=== PATIENT | male | born 1980 | race Caucasian/White ===

== ENCOUNTER 2017-05-15 15:17 | Emergency (ER) | payer OTHER ==
[2017-05-15 15:25] VITALS: BP 154/92; TEMP 98.1; BMI 38.7
--- NOTE | 2017-05-15 16:24 | ED.PDOC ---
General ED Provider: Dr. MAVIS DUFFY Chief Complaint: Tooth Problem Stated Complaint: Severe left upper jaw pain. Has dental abscess as diagnosed by Dr Diaz (Rx Amoxicillin) and Dr Avery-local dentist who prescribed Penicillin. Advised he needed to see oral surgeon. Currently in Severe pain Time Seen by Physician: 15:50 Mode of Arrival: Walk-In Information Source: Patient Primary Care Provider: ERIC DIAZ Nursing and Triage Documentation Reviewed and Agree: Yes Reviewed sepsis parameters & appropriate labs ordered?: Yes System Inflammatory Response Syndrome: Not Applicable Sepsis Protocol: For patient's 13 years and over: Temp is 96.8 and below OR 101 and greater Pulse >90 BPM Resp >20/minute Acutely Altered Mental Status Are patient's symptoms suggestive of a new infection, such as: -Pneumonia -Skin, Soft Tissue -Endocarditis -UTI -Bone, Joint Infection -Implantable Device -Acute Abdominal Infection -Wound Infection -Meningitis -Blood Stream Catheter Infection -Unknown System Inflammatory Response Syndrome: Not Applicable EENT Complaint Exam - Dental/Oral Complaint/Exam Mechanism of Injury: No known trauma Symptoms Are: Still present Timing: Constant Initial Severity: Moderate Current Severity: Severe Location: lt upper gum line Character: Reports: Dull, Aching, Throbbing Aggravating: Reports: Heat, Cold, Chewing Alleviating: Reports: OTC Meds Associated Signs and Symptoms: Reports: Swelling, Foul taste in mouth Related History: Reports: Similar episode Cardiac Risk Factors: Reports: None Dental/Oral Surgical History: Reports: None Tooth Findings: Present: Percussion tenderness Cervical Lymphadenopathy Present: No Facial Swelling Present: Yes Bleeding Present: No Oropharynx Findings: Absent: Clots, Active bleeding Septal Hematoma: No Foreign Body Present: No Dysphagia Present: No Drooling Present: Yes Asymmetrical Tonsillar Swelling Present: No Uvula Midline: Yes Paris-tonsillar Fluctuence: No Trismus Present: No Palatal Petechiae Present: No Scarlatinaform Rash Present: No Lesions: Absent: Gums, Tongue, Buccal Mucosa Exanthem: Absent: Gums, Tongue, Buccal Mucosa, Pharynx Vesicles: Absent: Lip, Gums, Tongue, Buccal Mucosa Differential Diagnoses: Dental Abcess, Dental Caries Review of Systems - Review Of Systems Constitutional: Reports: Malaise Eyes: Reports: No symptoms Ears, Nose, Mouth, Throat: Reports: Mouth swelling Respiratory: Reports: No symptoms Cardiac: Reports: No symptoms GI: Reports: No symptoms : Reports: No symptoms Musculoskeletal: Reports: No symptoms Skin: Reports: No symptoms Neurological: Reports: No symptoms Endocrine: Reports: No symptoms Hematologic/Lymphatic: Reports: No symptoms All Other Systems: Reviewed and Negative Past Medical History - Past Medical History Endocrine: Reports: None Cardiovascular: Reports: None, Hypertension Respiratory: Reports: None Hematological: Reports: None Gastrointestinal: Reports: None Genitourinary: Reports: None Neuro/Psych: Reports: None Musculoskeletal: Reports: None Cancer: Reports: None - Surgical History General Surgical History: Reports: None - Family History Family History: Reports: None - Social History Smoking Status: Current every day smoker, Heavy tobacco smoker Hx Substance Use: No Alcohol Screening: None - Immunizations Tetanus Shot up to Date: Yes Physical Exam - Physical Exam Appearance: Ill-appearing Ill-appearing: Mild Pain Distress: Severe Eyes: EVA, EOMI, Conjunctiva clear ENT: Ears normal, Erythema (dental decay with surrounding erythrema of buccal mucosa) Respiratory: Airway patent, Breath sounds clear Cardiovascular: RRR, Pulses normal GI/: Soft, Nontender, No masses Musculoskeletal: Normal strength, ROM intact, No edema Skin: Warm, Dry, Normal color Neurological: Sensation intact, Motor intact, Oriented Critical Care Note - Critical Care Note Total Time (mins): 0 Course - Course Hematology/Chemistry: 05/15/17 16:43 05/15/17 16:43 Vital Signs: Temp Pulse Resp BP Pulse Ox 05/15/17 15:18 98.1 F 84 16 154/92 H 92 L Departure - Departure Time of Disposition: 19:00 Disposition: HOME SELF-CARE Discharge Problem: Dental abscess, Hypertension Instructions: Dental Abscess (ED) Condition: Fair Pt referred to PMD for follow-up: Yes (1week) IPMP verified?: Yes Prescriptions: Clindamycin HCl [Cleocin] 300 mg PO Q6HR #30 cap Hydrocodone/Acetaminophen [Sedona 5-325 Tablet] 1 each PO Q4-6H PRN #15 tablet PRN Reason: Moderate Pain Hydrocodone/Acetaminophen [Sedona 5-325 Tablet] 1 each PO Q4-6H PRN #15 tablet PRN Reason: Mouth Sore Pain Hydroxyzine Pamoate [Vistaril] 25 mg PO TID PRN #30 tab PRN Reason: Mouth Sore Pain Allergies/Adverse Reactions: Allergies No Known Allergies Allergy (Verified 05/15/17 15:28) Home Medications: Ambulatory Orders Amoxicillin 500 mg PO TID 05/15/17 Atorvastatin Calcium [Lipitor] 20 mg PO BEDTIME 05/15/17 Clindamycin HCl [Cleocin] 300 mg PO Q6HR #30 cap 05/15/17 Hydrocodone/Acetaminophen [Sedona 5-325 Tablet] 1 each PO Q4-6H PRN #15 tablet Hydrocodone/Acetaminophen [Sedona 5-325 Tablet] 1 each PO Q4-6H PRN #15 tablet Hydroxyzine Pamoate [Vistaril] 25 mg PO TID PRN #30 tab 05/15/17 Lisinopril 20 mg PO DAILY 05/15/17 Disposition Discussed With: Patient
[2017-05-15] MEDS ORDERED: DILAUDID 1 MG/ML SYRINGE IM STA (16:29)
[2017-05-15] MEDS ORDERED: VISTARIL INJ IM STA (16:30)
[2017-05-15] MEDS ORDERED: VISTARIL ONE (16:34)
[2017-05-15] MEDS ORDERED: VISTARIL PO STA (16:54)
== END 2017-05-15 19:10 | disposition home or self-care (01) ==
LOC: ED 15:17
DX: K04.7 Periapical abscess without sinus (principal); K02.7 Dental root caries; I10 Essential (primary) hypertension; F17.210 Nicotine dependence, cigarettes, uncomplicated
CPT/HCPCS: 36415; 80053; 85025; 96372; 99282

== ENCOUNTER 2017-12-01 10:19 | Outpatient (CLI) ==
--- NOTE | 2017-12-01 10:58 | DI ---
EXAM: Foreign body evaluation for MRI clearance (eye) three views History: MRI clearance. Findings / impression: No fractures identified. No distinct air-fluid levels seen within the sinuse s. No radiopaque foreign bodies are seen projecting over the orbits. There is metallic dental hardw are.
--- NOTE | 2017-12-01 11:19 | DI ---
EXAM: Six views of the lumbar spine. History: Lower back pain and radiculopathy. Comparison: Lumbar spine radiograph 07/17/2008 Findings: No acute fracture or subluxation of the lumbar spine. Disc space heights are relatively p reserved. No instability identified with flexion or extension Impression: No acute osseous abnormality and no significant degenerative changes of the lumbar spine .
--- NOTE | 2017-12-01 16:26 | MRI ---
EXAM: MRI lumbar spine without IV contrast. DATE: 01 December 2017. HISTORY: Low back pain with radiculopathy. TECHNIQUE: Sagittal and axial T1W and T2W sequences of the lumbar spine along with sagittal IR and c oronal T2W sequences were obtained using 1.2 Maria Luisa magnet. No IV contrast. COMPARISON: LS spine series 01 December 2017. MRI L-spine 17 July 2008. FINDINGS: There are five [id number] lumbar vertebra. No lumbar scoliosis is evident. No acute lumbar fracture, subluxation, osseous malignancy, or pars interarticularis defect is demonstrated. The lumbar vertebra are normal in height. Bone marrow signal is normal. Disc desiccation and mild d isc space narrowing detected at L3-4 and L4-5. No acute sacral fracture or stress reaction is reveal ed. SI joints are unremarkable. Conus medullaris terminates at L1. Visible spinal cord is normal. No retroperitoneal lymphadenopathy, paraspinal mass, or aortic aneurysm is demonstrated. Paraspinal musculature is symmetric bilaterally. Visible portions of the liver, spleen, adrenal glands and kidn eys are normal. Segmental analysis: T11-12: Normal. T12-L1: Normal. L1-2: Normal. L2-3: Normal. L3-4: Small posterior to right far lateral disc bulge, superimposed right posterolateral disc protru leann (2.5 mm AP by 9 mm transverse) near the lateral margin of the foramen, minor facet arthropathy, and dorsal epidural fat cause moderate thecal sac narrowing and mild right foraminal stenosis. Right L3 nerve root contacts disc bulge/protrusion near the lateral margin of the foramen. L4-5: Minor posterior disc bulge, mild facet arthropathy, and mild ligamentum flavum hypertrophy cau se mild central canal stenosis and minor narrowing at the opening to each foramen. L5-S1: Normal. IMPRESSIONS: 1. Lumbar spine minor DDD and mild facet arthropathy. 2. Moderate L3-4 and mild L4-5 central canal stenoses. 3. L3-4 and L4-5 foraminal stenoses. Right L3 nerve root contacts the disc bulge/protrusion near th e foramen, and may be a source for pain/radiculopathy.
== END 2017-12-01 10:20 | disposition home or self-care (01) ==
LOC: RAD 10:19
PROVIDERS: ATTEND Nurse Practitioner
DX: M54.16 Radiculopathy, lumbar region (principal)

== ENCOUNTER 2018-07-04 14:25 | Outpatient (CLI) ==
--- NOTE | 2018-07-04 15:59 | US ---
Exam: Right upper extremity venous ultrasound HISTORY: Arm pain, tenderness and swelling Procedures: Transverse and longitudinal real time march scale echograms and color Doppler images of t he upper extremity were obtained. FINDINGS: The jugular, subclavian, axillary and brachial veins demonstrate normal flow and compressi bility. The cephalic, basilic, radial and ulnar veins appear patent. IMPRESSION: Right upper extremity venous Doppler ultrasound demonstrates no evidence of deep venous thrombosis.
== END 2018-07-04 14:26 | disposition home or self-care (01) ==
LOC: RAD 14:25
PROVIDERS: ATTEND Nurse Practitioner Family
DX: I80.9 Phlebitis and thrombophlebitis of unspecified site (principal)

== ENCOUNTER 2018-07-29 10:29 | Outpatient (RCR) ==
--- NOTE | 2018-07-29 15:39 | RS.OTEVAL ---
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 Level of Function: Pt is not able to throw a softball with his daughters. Pt is sleeping only 3 hours at night. Pt has difficulty using tools with RUE. Pt has quite a bit of difficulty opening doors. On the UEFI assessment he scored a 48.75 % impaired. On the quick dash the patient scored 75% impaired. Functional Limitations: Sleep, Self Care, ADL's, Reaching, Pushing, Pulling, Lifting, Carrying Current Complaints/Gains: Pt complains of impaired sensation and proprioception of the RUE hand due to the impaired/hypersensitivity of the Left hand. Pt is not able to tolerate cold temperatures. Pt gets relief from hot/warm temperatures. Pt reported there are times that the TV remote is in his hands but he does not realize it due to the impaired sensation. Pt is only getting about 3 hours of sleep a night and he has to prop his RUE on top of a pillow. Pt reports this pain and discomfort of his RUE forearm is worse in the evening. His current pain before the evaluation started was 7/10. Pt is hypersensitive to textures and temperatures. Pt reports he is not able to work at this time. His discomfort starts at the right elbow and moves to his RUE hand. Medical History Medical History Comments:: HTN, High cholesterol,Ulner nerve pain, Ulnar neuropathy of the RUE. Pt has a nerve conduction test and there is a problem at the elbow and patient reports he may have to have surgery. Smoking Status: Current every day smoker Diagnostic Testing/Imaging:: Nerve conduction test-damage of nerve at the RUE elbow. Pt may have to have surgery later. Hx Home Medications: amLodipine 5 mg, Atorvastatin 20 mg, Clonidine .2 mg, Depo- medrol 80 mg, Ketorolace 30 mg, Nicoderm CQ, Patient's Goals: To get the pain to go away in the right forearm, and to improve the se nsation Pain Assessment - Pain Description Pain Description: Burning, Radiating, Sharp, Dull, Throbbing, Chronic Pain Location: RUE forearm from elbow to his right hand small digit and ring digit. Pain Description: Pt reports aches and sharp to this hand. Current Pain Intensity: 7 Worst Pain Intensity: 9 Functional Outcome Measures UE Functional Index: 49 - G Codes & Severity Modifier G Codes: . Source of G Code score: . Observation - Observation Handedness: Right Girth Measurement Upper: Circumferential measurements of the BUE: elbow L-31.5 cm, R- 31.8 cm. middle of forearm L-29.5 cm, R- 30.6 cm. Wrist L-19.3 cm, R- 19.7 cm. Palmar crease L-23.5 cm, R-23.5 cm. Thumb L- 8.5 cm, R- 8.5 cm. Index L-8.6 cm, R-8.6 cm. Long L-7.9 cm, R- 8.9 cm. Ring L-7.4 cm, R- 8.3 cm. small L- 6.9 cm, R-7.9 cm. This indicates that had edemea in the RUE forearm and digits. Additional Comments: Pt has almost almost a full cm difference in the diameters of this RUE forearm than the left. The edema is where he complains mostly of pain. Shoulder ROM: Bilaterally WFL's Shoulder Muscle Strength: Left WFL's - Left Shoulder Strength Left Shoulder Flexion: 4+ Good + Left Shoulder Extension: 4+ Good + Left Shoulder Abduction: 4+ Good + Left Shoulder Adduction: 4+ Good + Left Shoulder External Rotation: 4+ Good + Left Shoulder Internal Rotation: 4+ Good + - Right Shoulder Strength Right Shoulder Flexion: 4 Good Right Shoulder Extension: 4 Good Right Shoulder Abduction: 4 Good Right Shoulder Adduction: 4 Good Right Shoulder External Rotation: 4 Good Right Shoulder Internal Rotation: 4 Good - Special Tests Shoulder Speed's Sign Test: Negative Right Shoulder Drop Arm Test: Negative Right Shoulder Hall-Cristi Impingement Test: Negative Right Elbow ROM: Bilaterally WFL's Elbow Muscle Strength: Left WFL's - Left Elbow Strength Left Elbow Extension: 4+ Good + Left Elbow Flexion: 4+ Good + Left Forearm Pronation: 4+ Good + Left Forearm Supination: 4+ Good + - Right Elbow Strength Right Elbow Extension: 3 Fair Right Elbow Flexion: 3 Fair Right Forearm Pronation: 3 Fair Right Forearm Supination: 3 Fair (Pt pain was a 7/10 before evaluation ever begain.) Wrist ROM: Bilaterally WFL's - Left Wrist Strength Left Wrist Extension: 4+ Good + Left Wrist Flexion: 4+ Good + Left Wrist Radial Deviation: 4+ Good + Left Wrist Ulnar Deviation: 4+ Good + Left Forearm Pronation: 4+ Good + Left Forearm Supination: 4+ Good + - Right Wrist Strength Right Wrist Extension: 3- Fair- Right Wrist Radial Deviation: 3- Fair- Right Wrist Ulnar Deviation: 3- Fair- Right Forearm Pronation: 3- Fair- Right Forearm Supination: 3- Fair- - Commercial Lines Underwriter Strength Left Commercial Lines Underwriter Strength: 110 Right Commercial Lines Underwriter Strength: 64 Commercial Lines Underwriter Strength Left Hand Commercial Lines Underwriter Strength: 110 Right Hand Commercial Lines Underwriter Strength: 64 Dynamometer Testing Position: 2nd Position Palpation Palpation Findings: Tenderness Comments:: hypersensitivity to touch to the RUE forearm, wrist and small digit. Sensation Right Upper Extremity: Impaired Left Upper Extremity: Intact/Normal Sensation Description: Pain Comments: Pt has impaired sensation with hypersensitivity and pain in the RUE hand and forearm. Pt cannot stand for the small digit to touch anything. Pt reports he cannot feel things in his hand and identify them. Proprioception is skewed. Pt reports pain a 7/10 but at night it is a 9/10 and he has to lay his forearm on the pillow. Pt was tested with monofilaments and his vision occluded and patient did not feel monofilament 3.61 on the RUE small digit or the ring digits anywhere. He did feel it on the LUE. OT then attempted the monofilament 4.31 and patient could feel it with eyes occluded on the RUE long digits on the lateral side. Pt was able to feel on the LUE. OT then attempted the 4.60 and patient was able to feel with the RUE with eyes occluded and hef felt it with the small digit and the ring digit well. Modalities - Treatment Modality: Electrical Stim Unattended Parameters/Method Applied: IFC at 7 m/amps per second. for 9 minutes and then increased to 8 m/amps to the volar ulnar nerve of the RUE. Pt reports afterwards he continued to have pain in the RUE. Pt reports heat feels the best to the Right forearm. 3 inch pads with gel were used. Treatment Area: RUE forearm, ulnar side of RUE. Patient Position: Sitting - Hot Pack/Cryotherapy Treatment: Hot Pack Interventions - Exercise/Activities Exercise/Activities/Manual Therapy: Pt educated regarding elevated hand pumps slowly to decrease the edema of the digits and the RUE. THen flex the RUE wrist and extend to move edema down to the elbow where patient is to continue to flex and extend the elbow. Pt tolerated 15 reps of each and understanding. HOME EXERCISE PROGRAM: Hand pumps, warm towel to his RUE hand and forearm. - Other Treatment/Services Treatment Details: Pt was evaluated and found to have sensation impairments along with RUE weakness of mass collarette separator, and pain levels ranging from 7-9/10. Moist hot pack was used to decrease pain and discomfort after measuring and assessment. Pt responded well to moist heat. Pt tolerated the electrical stimulation at 8 m/amps. - Charges Timed Code Treatment Minutes: 60 Total Treatment Time: 75 Procedures billed for this date of service:: Evaluation medium, Hot pack, electrical stimulation EVALUATION COMPLEXITY LEVEL: HISTORY: Medium, EXAM OF BODY SYSTEMS: Medium, CLINICAL DECISION MAKING: Medium Assessment Assessment: the RUE for ulnar neuropathy. Patient Education: Education of diagnosis, Home Exercise Program, Education of Plan of Care Rehab Potential: Good Problems/Comments: Pt has difficulty sleeping, pain in RUE 7-9/10. Pt has edema of the RUE. Pt has weakness of the RUE collarette separator. Pt's collarette separator has weakened to 64 Short Term Goals Goal #1: Pt pain to decrease to 3-4/10. Goal to be met by: 08/12/18 Goal #2: Pt pain to increase mass collarette separator to 85#. Goal to be met by: 08/16/18 Goal #3: Pt to desensitize & increase proprioception RUE to identify objects 3/ 5. Goal to be met by: 08/16/18 Goal #4: Pt to increase functional use of RUE to 50% of the time . Goal to be met by: 08/16/18 Php Web Developer Goals Goal #1: Pt pain to decrease to 1-2/10. Goal to be met by: 08/26/18 Goal #2: Pt pain to increase mass collarette separator to 110#. Goal to be met by: 08/26/18 Goal #3: Pt to desensitize & increase proprioception RUE to identify objects 5/ 5. Goal to be met by: 08/26/18 Goal #4: Pt to increase strength of RUE to increase functional use to WFL. Goal to be met by: 08/26/18 Plan - Treatment to be provided Procedures: Therapeutic Exercises, Therapeutic Activity, Neuromuscular Rehab, Manual Therapy, Patient Education Modalities: Electrical Stimulation, Ultrasound/Phonophoresis, Hot Packs - Treatment Plan Frequency: 2 X week Duration: 4 weeks Dates of Php Web Developer Goals: 08/29/18 Expiration date of current Insurance Approval:: waiting on approval - Treatment Code (1) Pain and swelling of right upper extremity Code(s): M79.601 - PAIN IN RIGHT ARM; M79.89 - OTHER SPECIFIED SOFT TISSUE DISORDERS Comments: M79.601 RUE arm pain and M79.89 soft Tissue disorders (2) Impaired sensation Code(s): R20.1 - HYPOESTHESIA OF SKIN Comments: Impaired sensation of RUE R20.1 (3) Muscle weakness Code(s): M62.81 - MUSCLE WEAKNESS (GENERALIZED) Comments: M62.81 muscle weakness
--- NOTE | 2018-08-08 13:16 | RS.OTCXNS ---
OT Case Note Date of Scheduled Appointment: 08/08/18 Type: No Show
== END 2018-08-09 23:59 ==
PROVIDERS: ATTEND Nurse Practitioner Family
DX: G56.21 Lesion of ulnar nerve, right upper limb (principal)

== ENCOUNTER 2018-09-30 14:36 | Emergency (ER) ==
[2018-09-30 14:43] VITALS: BP 130/79; TEMP 98.3; BMI 36.1
== END 2018-09-30 16:00 | disposition left against medical advice (07) ==
LOC: ED 14:36
DX: K08.89 Other specified disorders of teeth and supporting structures (principal); K02.7 Dental root caries; F17.210 Nicotine dependence, cigarettes, uncomplicated
CPT/HCPCS: 99281